=== PATIENT | female | born 1960 | race African-American/Black ===

== ENCOUNTER 2019-09-13 13:48 | Emergency (ER) | payer SELFPAY ==
[~2019-09-13] VITALS: Ht 167.6 cm; Wt 75.0 kg
[2019-09-13] MEDS ORDERED: KETOROLAC 15MG/ML VIAL IM ONE (17:15)
[2019-09-13 19:20] VITALS: BP 160/98
== END 2019-09-13 19:20 | disposition home or self-care (01) ==
LOC: ER 14:54
DX: S92.242A Displaced fracture of medial cuneiform of left foot, initial encounter for closed fracture (principal); I10 Essential (primary) hypertension; Z90.49 Acquired absence of other specified parts of digestive tract; Z88.5 Allergy status to narcotic agent; W52.XXXA Crushed, pushed or stepped on by crowd or human stampede, initial encounter; Y93.89 Activity, other specified; Y92.89 Other specified places as the place of occurrence of the external cause; Y99.8 Other external cause status
CPT/HCPCS: 29515; 73630; 96372; 99283; J1885